=== PATIENT | female | born 1975 | race Caucasian/White ===

== ENCOUNTER → 2018-04-25 17:16 | Outpatient (CLI) | payer MEDICARE, SELFPAY ==
[2018-04-25 19:33] LABS: Vitamin D 25 Hydroxy (D3) 35.4 ng/mL (30.0-100.0)
[2018-04-25 19:45] LABS: Vitamin B12 > 1000 pg/mL (239-931)
== END ==
PROVIDERS: Visit Provider Psychiatry & Neurology Psychiatry
DX: F32.9 Major depressive disorder, single episode, unspecified (principal)
CPT/HCPCS: 36415; 82306; 82607

== ENCOUNTER → 2018-07-28 11:53 | Outpatient (CLI) | payer MEDICARE, SELFPAY | PROVIDERS: Visit Provider Internal Medicine | DX: Z12.31 Encounter for screening mammogram for malignant neoplasm of breast (principal); Z53.8 Procedure and treatment not carried out for other reasons ==

== ENCOUNTER → 2018-09-11 09:56 | Outpatient (CLI) | payer MEDICARE, SELFPAY ==
--- NOTE | 2018-09-11 09:58 | DI.MG.S_ITS ---
BILATERAL DIGITAL DIAGNOSTIC MAMMOGRAM 3D/2D: 09/11/2018 CLINICAL: Left breast lump. Family history of breast cancer. Comparison is made to exams dated: 06/20/2017 mammogram, 06/17/2016 mammogram, and 05/07/2015 mammogram - [facility]. The tissue of both breasts is extremely dense, which lowers the sensitivity of mammography. There is a triangular marker overlying the skin of the upper outer left breast at anterior depth the site of the patient's reported palpable abnormality. There is a jd shaped biopsy clip underlying the site of palpable abnormality. There is no other underlying mammographic abnormality. There are stable calcifications in the right breast. No other significant masses, calcifications, or other findings are seen in either breast. IMPRESSION: INCOMPLETE: NEEDS ADDITIONAL IMAGING EVALUATION Jd shaped biopsy clip underlying the site of palpable abnormality in the left breast. Targeted diagnostic ultrasound recommended for further evaluation, which will be performed immediately following this exam. This exam was interpreted at Station ID: [id number]. NOTE: For mammograms, a report in lay terms will be sent to the patient. Approximately 15% of breast malignancies will not be visualized mammographically. In the management of a palpable breast mass, a negative mammogram must not discourage biopsy of a clinically suspicious lesion. Electronically Signed By: Raheem Medina M.D. ecl/:09/11/2018 11:09:18 letter sent: Additional Imaging Needed ACR BI-RADS Category 0: Incomplete [id number]
--- NOTE | 2018-09-11 09:58 | DI.US.S_ITS ---
LIMITED ULTRASOUND OF LEFT BREAST: 09/11/2018 CLINICAL: Palpable left breast lump. Comparison is made to exams dated: 09/11/2018 mammogram, 06/20/2017 mammogram, and 06/17/2016 mammogram - [facility]. Real-time and Doppler ultrasound of the left breast 12 o'clock region were performed. Pickering scale images of the real-time examination were reviewed. Targeted ultrasound was performed of the site of the patient's palpable abnormality. The previously 0.3 cm placed echogenic biopsy clip is identified at the 12 o'clock position 3 cm from the nipple just below the skin layer. No other masses or abnormalities are identified. There is no abnormal vascularity to the area of concern. IMPRESSION: BENIGN 1) Targeted ultrasound demonstrates the previously placed biopsy clip just below the skin layer at the site of the patient's palpable concern. No other masses or abnormalities are identified in the region. Recommend clinical follow-up for further evaluation and management of the patient's reported symptoms. 2) There is no sonographic evidence of malignancy in the imaged left breast. Return to annual screening mammography is recommended. The patient is advised to monitor her breasts and to return sooner for re-evaluation should she feel anything grow or change. This exam was interpreted at Station ID: [id number]. Electronically Signed By: Raheem Medina M.D. ecl/:09/12/2018 10:54:19 letter sent: Clinical Evaluation Ultrasound BI-RADS: 2 Benign
== END ==
PROVIDERS: Visit Provider Registered Nurse
DX: R92.8 Other abnormal and inconclusive findings on diagnostic imaging of breast (principal); N63.21 Unspecified lump in the left breast, upper outer quadrant; Z80.3 Family history of malignant neoplasm of breast
CPT/HCPCS: 76642; 77066; G0279